=== PATIENT | male | born 1945 | race Caucasian/White ===

== ENCOUNTER → 2018-04-10 | Outpatient (CLI) | payer OTHER | LOC: M.RAD 15:27 | DX: M19.021 Primary osteoarthritis, right elbow (principal); M25.421 Effusion, right elbow ==

== ENCOUNTER → 2020-08-25 | Outpatient (CLI) | payer OTHER | LOC: M.RAD 10:11 | PROVIDERS: ATTEND Nurse Practitioner Family | DX: J44.9 Chronic obstructive pulmonary disease, unspecified (principal); R63.4 Abnormal weight loss; M75.101 Unspecified rotator cuff tear or rupture of right shoulder, not specified as traumatic; I77.810 Thoracic aortic ectasia ==

== ENCOUNTER → 2020-09-10 | Outpatient (CLI) | payer OTHER | LOC: M.CT 08:30 | PROVIDERS: ATTEND Nurse Practitioner Family | DX: R91.8 Other nonspecific abnormal finding of lung field (principal) ==